=== PATIENT | female | born 1965 | race Caucasian/White ===

== ENCOUNTER → 2019-10-18 | Outpatient (CLI) | payer OTHER | LOC: SJCVCIMAG 10-12 09:04 | DX: I87.2 Venous insufficiency (chronic) (peripheral) (principal) ==

== ENCOUNTER → 2020-02-12 | Outpatient (CLI) | payer OTHER | LOC: SJCVC 13:56 | PROVIDERS: ATTEND Nuclear Medicine Nuclear Cardiology | DX: I87.2 Venous insufficiency (chronic) (peripheral) (principal); M79.89 Other specified soft tissue disorders; I10 Essential (primary) hypertension; E78.00 Pure hypercholesterolemia, unspecified; E11.9 Type 2 diabetes mellitus without complications; F17.200 Nicotine dependence, unspecified, uncomplicated; Z79.899 Other long term (current) drug therapy ==

== ENCOUNTER → 2020-03-05 | Outpatient (CLI) | payer OTHER ==
[~2020-03-05] VITALS: Ht 157.5 cm; Wt 111.1 kg
[~2020-03-05] MED LIST: CHROMIUM PIC1000 MCG PO; CINNAMON BARK1 GM PO; FLEXERIL PO; GLUMETZA1000 PO; IBUPROFEN200 M1 PO; LEVO-T100 MCG PO; LEXAPRO20 MG PO; MAGOX 400400 MG PO; NEURONTIN100 MG PO; OMEPRAZOLE40 MG PO; PROPRANOLOL 1010 M1 PO; ROSUVASTATIN CA40 MG PO; TOUJEO MAX300 UNIT/1 SUBQ; ZOLPIDEM TARTRA10 MG PO
[2020-03-05 12:56] LABS: HEMATOCRIT 47.2 % (37.0-47.0); HEMOGLOBIN 16.2 gm/dL (12.0-15.0); MCH 30.3 pg (26.0-34.0); MCHC 34.2 g/dL (28.0-37.0); MCV 88.6 fL (80.0-100.0); RBC 5.33 mil/uL (4.20-5.00); RDW 13.6 % (10.5-14.5); WBC 9.8 thou/uL (4.0-11.0)
[2020-03-05 13:03] LABS: CALCIUM 9.4 mg/dL (8.5-10.1); CREATININE 0.8 mg/dL (0.6-1.0); POTASSIUM 3.7 mmol/L (3.5-5.1)
[2020-03-05 13:09] VITALS: BP 138/74
== END | disposition home or self-care (01) ==
LOC: CATH 02-22 13:30
PROVIDERS: ATTEND Nuclear Medicine Nuclear Cardiology
DX: I87.1 Compression of vein (principal); I87.323 Chronic venous hypertension (idiopathic) with inflammation of bilateral lower extremity; R22.43 Localized swelling, mass and lump, lower limb, bilateral; I10 Essential (primary) hypertension; E11.9 Type 2 diabetes mellitus without complications; E78.00 Pure hypercholesterolemia, unspecified; M19.90 Unspecified osteoarthritis, unspecified site; I73.9 Peripheral vascular disease, unspecified; E66.09 Other obesity due to excess calories; K21.9 Gastro-esophageal reflux disease without esophagitis; F17.210 Nicotine dependence, cigarettes, uncomplicated; Z98.890 Other specified postprocedural states; Z79.899 Other long term (current) drug therapy; Z88.2 Allergy status to sulfonamides; Z88.8 Allergy status to other drugs, medicaments and biological substances

== ENCOUNTER → 2020-04-01 | Outpatient (CLI) | payer OTHER | LOC: SJCVC 15:31 | PROVIDERS: ATTEND Nuclear Medicine Nuclear Cardiology | DX: I87.2 Venous insufficiency (chronic) (peripheral) (principal); M79.89 Other specified soft tissue disorders; I10 Essential (primary) hypertension; E11.9 Type 2 diabetes mellitus without complications; E78.00 Pure hypercholesterolemia, unspecified; F17.210 Nicotine dependence, cigarettes, uncomplicated; Z79.899 Other long term (current) drug therapy ==

== ENCOUNTER → 2020-04-25 | Outpatient (CLI) | payer OTHER ==
[~2020-04-25] VITALS: Ht 157.5 cm; Wt 106.8 kg
[2020-04-25 11:44] VITALS: BP 144/60
== END | disposition home or self-care (01) ==
LOC: CATH 10:20
PROVIDERS: ATTEND Nuclear Medicine Nuclear Cardiology
DX: I87.323 Chronic venous hypertension (idiopathic) with inflammation of bilateral lower extremity (principal); R22.41 Localized swelling, mass and lump, right lower limb; I10 Essential (primary) hypertension; E78.00 Pure hypercholesterolemia, unspecified; E11.9 Type 2 diabetes mellitus without complications; M19.90 Unspecified osteoarthritis, unspecified site; K21.9 Gastro-esophageal reflux disease without esophagitis; F17.210 Nicotine dependence, cigarettes, uncomplicated; E66.09 Other obesity due to excess calories; Z98.890 Other specified postprocedural states; Z79.899 Other long term (current) drug therapy; Z88.2 Allergy status to sulfonamides; Z79.4 Long term (current) use of insulin; Z88.8 Allergy status to other drugs, medicaments and biological substances